=== PATIENT | female | born 1955 | race Caucasian/White ===

== ENCOUNTER 2018-09-30 13:36 | Emergency (ER) | payer OTHER ==
[2018-09-30] MEDS ORDERED: IBUPROFEN 400 MG TAB ONE (14:07)
--- NOTE | 2018-09-30 14:55 | RAD REPORT ---
EXAM DESCRIPTION: RAD - Foot Left 3 View - 09/30/2018 2:23 pm CLINICAL HISTORY: PAIN COMPARISON: No comparisons FINDINGS: Large posterior and plantar calcaneal spurs. No acute fracture or dislocation.
--- NOTE | 2018-09-30 15:02 | ER ---
[facility] Name: Frida Wise Age: 63 yrs Sex: Female : 1955 Arrival Date: 09/30/2018 Time: 13:38 Bed 7 Private MD: Diagnosis: Contusion of left foot Presentation: 09/30 13:41 Presenting complaint: Patient states: I dropped a 10lb dumbell on the top of my left la1 foot about 45 minutes ago. Transition of care: patient was not received from another setting of care. Onset of symptoms was September 30, 2018. Risk Assessment: Do you want to hurt yourself or someone else? Patient reports no desire to harm self or others. Initial Sepsis Screen: Does the patient meet any 2 criteria? No. Patient's initial sepsis screen is negative. Does the patient have a suspected source of infection? No. Patient's initial sepsis screen is negative. Care prior to arrival: None. 13:41 Method Of Arrival: Wheelchair la1 13:41 Acuity: MACARENA 4 la1 Triage Assessment: 13:42 General: Appears in no apparent distress. uncomfortable, Behavior is calm, cooperative, hj appropriate for age. Pain: Complains of pain in left foot. Musculoskeletal: Reports pain in left foot. Injury Description: Crush injury. Historical: - Allergies: 13:42 Demerol; la1 13:42 Codeine; la1 - PMHx: 13:42 None; la1 - Immunization history:: Adult Immunizations up to date. - Social history:: Smoking status: Patient/guardian denies using tobacco. - Ebola Screening: : No symptoms or risks identified at this time. Screenin:42 Abuse screen: Denies threats or abuse. Denies injuries from another. Nutritional hj screening: No deficits noted. Tuberculosis screening: No symptoms or risk factors identified. Fall Risk None identified. Assessment: 13:42 General: Appears in no apparent distress. uncomfortable, Behavior is calm, cooperative, hj appropriate for age. Pain: Complains of pain in left foot. Neuro: Level of Consciousness is awake, alert, obeys commands, Oriented to person, place, time, situation, Appropriate for age. Cardiovascular: Capillary refill < 3 seconds Patient's skin is warm and dry. Respiratory: Airway is patent Respiratory effort is even, unlabored, Respiratory pattern is regular, symmetrical. GI: No signs and/or symptoms were reported involving the gastrointestinal system. : No signs and/or symptoms were reported regarding the genitourinary system. EENT: No signs and/or symptoms were reported regarding the EENT system. Derm: No signs and/or symptoms reported regarding the dermatologic system. Musculoskeletal: Reports pain in left foot. Vital Signs: 13:42 BP 140 / 72; Pulse 63; Resp 16; Temp 98.4; Pulse Ox 98% on R/A; Weight 74.84 kg; Height la1 5 ft. 3 in. (160.02 cm); 13:42 Body Mass Index 29.23 (74.84 kg, 160.02 cm) la1 ED Course: 13:38 Patient arrived in ED. mr 13:42 Triage completed. la1 13:42 Patient has correct armband on for positive identification. Bed in low position. Call hj light in reach. Side rails up X 1. Adult w/ patient. 13:43 Arm band placed on right wrist. la1 13:50 Keron Lewis, CATARINA is Primary Nurse. hj 13:50 Rashaad Oneill PA is PHCP. cp 13:50 Jonah Rascon MD is Attending Physician. cp 14:19 Foot Left 3 View XRAY In Process Unspecified. EDMS 15:20 No provider procedures requiring assistance completed. Patient did not have IV access hj during this emergency room visit. 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 Exp: hj 08/17/2020. Lot #: [id number]. } Route: IM; Site: right deltoid; 15:16 Follow up: Response: No adverse reaction hj Outcome: 15:01 Discharge ordered by . cp 15:21 Discharged to home ambulatory, with crutches, with family. hj 15:21 Condition: stable 15:21 Discharge instructions given to patient, family, Instructed on discharge instructions, follow up and referral plans. medication usage, Demonstrated understanding of instructions, follow-up care, medications, Prescriptions given X 1. 15:21 Patient left the ED. hj Signatures: Dispatcher [employer] EDCO Maddi Cervantes mr Srinivas Rabago, RN RN la1 Keron Lewis, RN RN hj Rashaad Oneill, ARIANNA KELLER cp
--- NOTE | 2018-09-30 15:02 | EDPHYS ---
Physician Documentation [facility] Name: Frida Wise Age: 63 yrs Sex: Female : 1955 Arrival Date: 09/30/2018 Time: 13:38 Bed 7 Private MD: ED Physician Jonah Rascon HPI: 09/30 14:00 This 63 yrs old Female presents to ER via Wheelchair with complaints of Foot cp Injury. 14:00 The patient presents with an injury, pain, that is acute. cp 14:00 The complaints affect the dorsum of left foot. Context: resulted from a direct blow, 10 cp lb weight fell onto top of left foot, the patient can partially bear weight, the patient is able to ambulate. Onset: The symptoms/episode began/occurred today. Modifying factors: the symptoms are aggravated by movement, weight bearing. Associated signs and symptoms: Pertinent negatives calf tenderness, numbness, tingling, warmth, weakness. Historical: - Allergies: 13:42 Demerol; la1 13:42 Codeine; la1 - PMHx: 13:42 None; la1 - Immunization history:: Adult Immunizations up to date. - Social history:: Smoking status: Patient/guardian denies using tobacco. - Ebola Screening: : No symptoms or risks identified at this time. ROS: 14:05 Constitutional: Negative for body aches, chills, fever, poor PO intake. cp 14:05 Eyes: Negative for injury, pain, redness, and discharge. cp 14:05 ENT: Negative for ear pain, sore throat, difficulty swallowing, difficulty handling secretions. 14:05 Cardiovascular: Negative for chest pain. 14:05 Respiratory: Negative for cough. 14:05 Abdomen/GI: Negative for abdominal pain, nausea, vomiting, and diarrhea. 14:05 MS/extremity: Positive for contusion, pain, swelling, tenderness, of the dorsum of left foot, Negative for deformity. 14:05 Neuro: Negative for altered mental status, dizziness, numbness. 14:05 All other systems are negative. Exam: 14:12 Constitutional: The patient appears in no acute distress, alert, awake, non-toxic, well cp developed, well nourished. 14:12 Head/Face: Normocephalic, atraumatic. cp 14:12 Eyes: Periorbital structures: appear normal, Conjunctiva: normal, no exudate, no injection, Lids and lashes: appear normal, bilaterally. 14:12 ENT: External ear(s): are unremarkable, Nose: is normal, Mouth: is normal. 14:12 Chest/axilla: Inspection: normal. 14:12 Cardiovascular: Rate: normal, Rhythm: regular. 14:12 Respiratory: the patient does not display signs of respiratory distress, Respirations: normal, no use of accessory muscles, no retractions, no splinting, no tachypnea, labored breathing, is not present. 14:12 Abdomen/GI: Inspection: abdomen appears normal. 14:12 Back: pain, is absent, ROM is normal. 14:12 Musculoskeletal/extremity: Extremities: grossly normal except: noted in the dorsum of left foot: abrasion, contusion, ecchymosis, pain, Perfusion: the extremity is normally perfused throughout, Sensation intact. Vital Signs: 13:42 BP 140 / 72; Pulse 63; Resp 16; Temp 98.4; Pulse Ox 98% on R/A; Weight 74.84 kg; Height la1 5 ft. 3 in. (160.02 cm); 13:42 Body Mass Index 29.23 (74.84 kg, 160.02 cm) la1 MDM: 13:51 Patient medically screened. 15:00 Data reviewed: vital signs, nurses notes, radiologic studies, plain films. Counseling: cp I had a detailed discussion with the patient and/or guardian regarding: the historical points, exam findings, and any diagnostic results supporting the discharge/admit diagnosis, radiology results, to return to the emergency department if symptoms worsen or persist or if there are any questions or concerns that arise at home. 09/30 13:47 Order name: Foot Left 3 View XRAY; Complete Time: 14:59 la1 09/30 14:59 Interpretation: Reviewed report. 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 Exp: 08/17/2020. Lot #: [id number]. } Route: IM; Site: right deltoid; 15:16 Follow up: Response: No adverse reaction Disposition: 15:33 Co-signature as Attending Physician, Jonah Rascon MD. rn Disposition: 09/30/18 15:01 Discharged to Home. Impression: Contusion of left foot. - Condition is Stable. - Discharge Instructions: Foot Contusion. - Prescriptions for Ibuprofen 800 mg Oral Tablet - take 1 tablet by ORAL route every 8 hours As needed take with food; 30 tablet. - Medication Reconciliation Form, Thank You Letter, Antibiotic Education, Prescription Opioid Use form. - Follow up: Private Physician; When: 5 - 6 days; Reason: Recheck today's complaints. - Problem is new. - Symptoms have improved. Signatures: Dispatcher [employer] EDMS Jonah Rascon MD MD rn Attema, Lee, RN RN laKeron Wills RN RN hj Page, Corey, PA PA cp Corrections: (The following items were deleted from the chart) 15:21 15:01 09/30/2018 15:01 Discharged to Home. Impression: Contusion of left foot. hj Condition is Stable. Forms are Medication Reconciliation Form, Thank You Letter, Antibiotic Education, Prescription Opioid Use. Follow up: Private Physician; When: 5 - 6 days; Reason: Recheck today's complaints. Problem is new. Symptoms have improved. cp 10/01 12:45 09/30 13:05 Constitutional: Negative for body aches, chills, fever, poor PO intake, cp cp 10/01 12:45 09/30 13:05 Eyes: Negative for injury, pain, redness, and discharge, cp cp 10/01 12:45 09/30 13:05 ENT: Negative for drainage from ear(s), ear pain, sore throat, difficulty cp swallowing, difficulty handling secretions, cp 10/01 12:45 09/30 13:05 Cardiovascular: Negative for chest pain, cp cp 10/01 12:45 09/30 13:05 Respiratory: Negative for cough, shortness of breath, wheezing, cp cp 10/01 12:45 09/30 13:05 Abdomen/GI: Negative for abdominal pain, nausea, vomiting, and diarrhea, cp cp 10/01 12:45 09/30 13:05 Back: Negative for pain at rest, pain with movement, radiated pain, cp cp 10/02 11:09/30 13:05 : Negative for urinary symptoms, cp cp 10/01 12:45 09/30 13:05 MS/extremity: Positive for contusion, pain, swelling, tenderness, of the cp dorsum of left foot, cp 10/01 12:09/30 13:05 Neuro: Negative for dizziness, headache, weakness, cp cp 10/01 12:45 09/30 13:05 All other systems are negative, cp cp 10/01 12:47 12:42 MS/extremity: Positive for contusion, ecchymosis, pain, swelling, tenderness, of cp the dorsum of left foot, cp 12:47 12:42 Constitutional: Negative for body aches, chills, fever, poor PO intake, cp cp 12:47 12:42 Eyes: Negative for injury, pain, redness, and discharge, cp cp 12:47 12:42 ENT: Negative for drainage from ear(s), ear pain, sore throat, difficulty cp swallowing, difficulty handling secretions, cp 12:47 12:42 Cardiovascular: Negative for chest pain, cp cp 12:47 12:42 Respiratory: Negative for cough, shortness of breath, wheezing, cp cp 12:47 12:42 Abdomen/GI: Negative for abdominal pain, vomiting, diarrhea, constipation, cp cp 12:47 12:42 Back: Negative for pain at rest, pain with movement, cp cp 12:47 12:42 : Negative for urinary symptoms, cp cp 12:47 12:42 Neuro: Negative for altered mental status, dizziness, numbness, cp cp 12:47 12:42 All other systems are negative, cp cp
[2018-09-30] MEDS ORDERED: TETANUS & DIPHTHERIA TOX,ADULT 0.5 ML VIAL ONE (15:13)
== END 2018-09-30 15:21 | disposition home or self-care (01) ==
LOC: ER 13:36
DX: S90.32XA Contusion of left foot, initial encounter (principal); W22.8XXA Striking against or struck by other objects, initial encounter; Y93.9 Activity, unspecified; Y92.9 Unspecified place or not applicable; Z88.5 Allergy status to narcotic agent
CPT/HCPCS: 90714; 99283

== ENCOUNTER 2023-09-22 10:53 | Observation (INO) | payer OTHER ==
--- OUTSIDE RECORDS SUMMARY | 2023-09-22 11:10 | XMS REPORT | Continuity of Care Document ---
Author Name Unknown Address [address] [facility] [place] [address] [facility] Address [address] [place] [address] Care Team Providers Care Account Executive Key Accounts Name Role Phone JD SHEPARD Primary Care Physician Jase Calvo MD Attending Clinician JASE WARE Attending Clinician JASE Xavier Attending Clinician Nilo merino Doctor Unassigned, [place] Attending Clinician U navailable 1, [facility] Sleep Lab Bed Attending Clinician Unavail able Payers Payer Name Policy Type Policy Number Effective Date Expirati on Date Source Problems Condition Name Condition Details Condition Category Status Onset Date Resolution Date Last Treatment Date Treating Clinician Comments Source No known active problems No known active problems Disease [facility] Allergies, Adverse Reactions, Alerts Allergy Name Allergy Type Status Severity Reaction(s) Onset Date Inactive Date Treating Clinician Comments Source Meperidi ne Propensi ty to adverse reaction s Active Other - See comments 02-10 00:00: 00 syncope [facility] CODEINE DRUG INGREDI Active Other-Cmnt 8 00:00: 00 [facility] MEPERIDI NE DRUG INGREDI Active Other-Cmnt 02-10 00:00: 00 [facility] Codeine Propensi ty to adverse reaction s Active Other - See comments 02-10 00:00: 00 syncope [facility] Social History Social Habit Start Date Stop Date Quantity Comments Source Exposure to SARS-CoV-2 (event) 2022-07-11 00:00:00 2022-07-21 10:09:00 Not sure [facility] Tobacco use and exposure 2022-02-10 00:00:00 2022-02-10 00:00:00 Smokeless tobacco non-user [facility] Sex Assigned At 1955 00:00:00 1955 00:00:00 [facility] Smoking Status Start Date Stop Date Source Tobacco smoking consumption unknown [facility] Never smoked tobacco [facility] Medications Ordered Medication Name Filled Medication Name Start Date Stop Date Current Medication? Ordering Clinician Indication Dosage Frequency Signature (SIG) Comments Components Source escitalopra m oxalate 20 mg tablet 07-21 10:23: 46 Yes Take by mouth daily. [facility] Lamotrigine 100 mg TbDL 07-21 10:23: 46 Yes Take by mouth. [facility] trazodone HCl (TRAZODONE ORAL) 07-21 10:23: 46 Yes Take by mouth. [facility] escitalopra m oxalate 20 mg tablet 07-21 10:23: 46 Yes Take by mouth daily. [facility] Lamotrigine 100 mg TbDL 07-21 10:23: 46 Yes Take by mouth. [facility] trazodone HCl (TRAZODONE ORAL) 07-21 10:23: 46 Yes Take by mouth. [facility] escitalopra m oxalate 20 mg tablet 07-21 10:23: 46 Yes Take by mouth daily. [facility] Lamotrigine 100 mg TbDL 07-21 10:23: 46 Yes Take by mouth. [facility] trazodone HCl (TRAZODONE ORAL) 07-21 10:23: 46 Yes Take by mouth. [facility] escitalopra m oxalate 20 mg tablet 07-21 10:23: 46 Yes Take by mouth daily. [facility] Lamotrigine 100 mg TbDL 07-21 10:23: 46 Yes Take by mouth. [facility] trazodone HCl (TRAZODONE ORAL) 07-21 10:23: 46 Yes Take by mouth. [facility] escitalopra m oxalate 20 mg tablet 07-21 10:23: 46 Yes Take by mouth daily. [facility] Lamotrigine 100 mg TbDL 07-21 10:23: 46 Yes Take by mouth. [facility] trazodone HCl (TRAZODONE ORAL) 07-21 10:23: 46 Yes Take by mouth. [facility] No known medications 02-10 12:15: 35 No No known medication s [facility] No known medications 02-10 12:15: 35 No No known medication s [facility] trazodone HCl (TRAZODONE ORAL) 02-10 12:07: 55 Yes Take by mouth. [facility] trazodone HCl (TRAZODONE ORAL) 810 12:07: 55 Yes Take by mouth. [facility] trazodone HCl (TRAZODONE ORAL) 8 12:07: 55 Yes Take by mouth. [facility] trazodone HCl (TRAZODONE ORAL) 10 12:07: 55 Yes Take by mouth. [facility] trazodone HCl (TRAZODONE ORAL) 810 12:07: 55 Yes Take by mouth. [facility] trazodone HCl (TRAZODONE ORAL) 810 12:07: 55 Yes Take by mouth. [facility] trazodone HCl (TRAZODONE ORAL) 810 12:07: 55 Yes Take by mouth. [facility] trazodone HCl (TRAZODONE ORAL) 810 12:07: 55 Yes Take by mouth. [facility] trazodone HCl (TRAZODONE ORAL) 2021-0 8-10 12:07: 55 Yes Take by mouth. [facility] trazodone HCl (TRAZODONE ORAL) 2021-0 8-10 12:07: 55 Yes Take by mouth. [facility] Lamotrigine 100 mg TbDL 2-0 8-10 12:07: 54 Yes Take by mouth. [facility] escitalopra m oxalate 20 mg tablet 2021-0 8-10 12:07: 54 Yes Take by mouth daily. [facility] Lamotrigine 100 mg TbDL 2021-0 8-10 12:07: 54 Yes Take by mouth. [facility] escitalopra m oxalate 20 mg tablet 2021-0 8-10 12:07: 54 Yes Take by mouth daily. [facility] Lamotrigine 100 mg TbDL 2021-0 8-10 12:07: 54 Yes Take by mouth. [facility] escitalopra m oxalate 20 mg tablet 2021-0 8-10 12:07: 54 Yes Take by mouth daily. [facility] Lamotrigine 100 mg TbDL 2021-0 8-10 12:07: 54 Yes Take by mouth. [facility] escitalopra m oxalate 20 mg tablet 2021-0 8-10 12:07: 54 Yes Take by mouth daily. [facility] Lamotrigine 100 mg TbDL 2021-0 8-10 12:07: 54 Yes Take by mouth. [facility] escitalopra m oxalate 20 mg tablet 2021-0 8-10 12:07: 54 Yes Take by mouth daily. [facility] Lamotrigine 100 mg TbDL 2-0 8-10 12:07: 54 Yes Take by mouth. [facility] escitalopra m oxalate 20 mg tablet 2-0 8-10 12:07: 54 Yes Take by mouth daily. [facility] Lamotrigine 100 mg TbDL 2-0 8-10 12:07: 54 Yes Take by mouth. [facility] escitalopra m oxalate 20 mg tablet 810 12:07: 54 Yes Take by mouth daily. [facility] Lamotrigine 100 mg TbDL 8-10 12:07: 54 Yes Take by mouth. [facility] escitalopra m oxalate 20 mg tablet 8-10 12:07: 54 Yes Take by mouth daily. [facility] Lamotrigine 100 mg TbDL 810 12:07: 54 Yes Take by mouth. [facility] escitalopra m oxalate 20 mg tablet 810 12:07: 54 Yes Take by mouth daily. [facility] Lamotrigine 100 mg TbDL 8 12:07: 54 Yes Take by mouth. [facility] escitalopra m oxalate 20 mg tablet 02-10 12:07: 54 Yes Take by mouth daily. [facility] Vital Signs Vital Name Observation Time Observation Value Comments S beth Systolic blood pressure 2022-07-21 16:24:00 123 mm[Hg] [facility] Diastolic blood pressure 2022-07-21 16:24:00 76 mm[Hg] [facility] Heart rate 2022-07-21 16:24:00 50 /min [facility] Respiratory rate 2022-07-21 16:24:00 17 /min [facility] Body height 2022-07-21 16:24:00 160 cm [facility] Body weight 2022-07-21 16:24:00 74.532 kg [facility] BMI 2022-07-21 16:24:00 29.11 kg/m2 [facility] Oxygen saturation in Arterial blood by Pulse oximetry 2022-07-21 16:24:00 97 /min [facility] Systolic blood pressure 2022-04-07 19:40:00 135 mm[Hg] [facility] Diastolic blood pressure 2022-04-07 19:40:00 75 mm[Hg] [facility] Heart rate 2022-04-07 19:40:00 52 /min [facility] Respiratory rate 2022-04-07 19:40:00 19 /min [facility] Body height 2022-04-07 19:40:00 160 cm [facility] Body weight 2022-04-07 19:40:00 76.975 kg [facility] BMI 2022-04-07 19:40:00 30.06 kg/m2 [facility] Oxygen saturation in Arterial blood by Pulse oximetry 2022-04-07 19:40:00 94 /min [facility] Systolic blood pressure 2022-02-10 17:03:00 131 mm[Hg] [facility] Diastolic blood pressure 2022-02-10 17:03:00 67 mm[Hg] [facility] Heart rate 2022-02-10 17:03:00 54 /min [facility] Body height 2022-02-10 17:03:00 160 cm [facility] Body weight 2022-02-10 17:03:00 77.973 kg [facility] BMI 2022-02-10 17:03:00 30.45 kg/m2 [facility] Oxygen saturation in Arterial blood by Pulse oximetry 2022-02-10 17:03:00 94 /min [facility] Procedures Procedure Date / Time Performed Performing Clinician Source DME/SUPPLY JUSTIFICATION 2022-07-21 06:01:00 Doc tor Unassigned, [place] [facility] SLEEP STUDY DATA REPORT 2022-05-08 05:01:00 Doct or Unassigned, [place] [facility] ASSIGNMENT OF BENEFITS 2022-04-07 19:16:56 Docto r Unassigned, [place] [facility] AUTHORIZATION FOR RELEASE OF PHI 2022-03-11 05:01:00 Doctor Unassigned, [place] [facility] SLEEP STUDY DATA REPORT 2022-02-20 05:01:00 Doct or Unassigned, [place] [facility] REFERRAL- REQUEST/RESPONSE 2022-01-26 05:01:00 Doctor Unassigned, [place] [facility] VACCINATIONS - CONSENTS, ELIGIBILITY, HISTORY Doctor Unassigned, [place] [facility] Encounters Start Date/Time End Date/Time Encounter Type Admission Type Attending Clinicians Care Facility Care Department Encounter ID Source 2022-07-21 10:30:00 2022-07-21 11:00:00 Office Visit Jase Ware [facility] [id number] 350.1.13.10 4.2.7.2.686 [id number] [facility] 2022-07-21 10:30:00 2022-07-21 10:30:00 Outpatient R JASE WARE STRAHIL [facility] [id number] [facility] 2022-07-21 00:00:00 2022-07-21 00:00:00 Telephone Jase Ware [facility] 1.840.114 350.1.13.10 4.2.7.2.686 [id number] [facility] 2022-07-21 00:00:00 2022-07-21 00:00:00 Orders Only Doctor Unassigned, [place] [facility] [id number] 350.1.13.10 4.2.7.2.686 [id number] [facility] 2022-07-10 20:00:00 2022-07-10 20:00:00 Outpatient R JASE WARE STRAHIL [facility] [id number] [facility] 2022-05-08 20:00:00 2022-05-08 22:30:00 Fisher Weir Visit 1, [facility] Sleep Lab Bed Jase Ware [facility] 1.2840.114 350.1.13.10 4.2.7.2.686 [id number] [facility] 2022-05-08 20:00:00 2022-05-08 20:00:00 Outpatient R ZOËLEN JASE CAMPLATONYAYESY [facility] [id number] [facility] 2022-05-08 00:00:00 2022-05-08 00:00:00 Orders Only Doctor Unassigned, [place] [facility] 1.2840.114 350.1.13.10 4.2.7.2.686 [id number] [facility] 2022-04-07 14:20:00 2022-04-07 14:55:49 Outpatient R BILL WARESAMIR CAMPLEN [facility] [id number] [facility] 2022-04-07 14:20:00 2022-04-07 14:40:00 Office Visit Jase Ware [facility] 1.2840.114 350.1.13.10 4.2.7.2.686 [id number] [facility] 2022-04-07 00:00:00 2022-04-07 00:00:00 Orders Only Doctor Unassigned, [place] [facility] [id number] 350.1.13.10 4.2.7.2.686 [id number] [facility] 2022-03-11 00:00:00 2022-03-11 00:00:00 Orders Only Doctor Unassigned, [place] [facility] 1.2840.114 350.1.13.10 4.2.7.2.686 [id number] [facility] 2022-02-20 20:00:00 2022-02-20 22:30:00 Fisher Weir Visit 1, [facility] Sleep Lab Bed Jase Ware [facility] 1.2840.114 350.1.13.10 4.2.7.2.686 [id number] [facility] 2022-02-20 20:00:00 2022-02-20 20:00:00 Outpatient R JASE WARE STRANHNikolas [facility] [id number] [facility] 2022-02-20 00:00:00 2022-02-20 00:00:00 Orders Only Doctor Unassigned, [place] [facility] 1.2840.114 350.1.13.10 4.2.7.2.686 [id number] [facility] 2022-02-10 11:40:00 2022-02-10 15:12:13 Outpatient R JASE WARE STRANHNikolas [facility] [id number] [facility] 2022-02-10 11:40:00 2022-02-10 15:12:13 Outpatient R JASE WARE [facility] [id number] [facility] 2022-02-10 11:40:00 2022-02-10 12:00:00 Office Visit Jase Ware [facility] 1.84.114 350.1.13.10 4.2.7.2.686 [id number] [facility] 2022-01-26 00:00:00 2022-01-26 00:00:00 Orders Only Doctor Unassigned, [place] [facility] 1.284.114 350.1.13.10 4.2.7.2.686 [id number] [facility] Orders Only Doctor Unassigned, [place] [facility] 1.2840.114 350.1.13.10 4.2.7.2.686 [id number] [facility]
[2023-09-22 11:27] LABS: Absolute Eosinophils 0.1 K/uL (0-0.5); Absolute Lymphocytes (CBC) 1.4 K/uL (0.7-4.9); Absolute Monocytes 0.3 K/uL (0.1-1.3); Absolute Neutrophil 1.8 K/uL (1.8-8.0); Basophils % 0.7 % (0-1.3); Eosinophils % 2.2 % (0-4.4); Hematocrit 38.8 % (36.0-45.0); Hemoglobin 13.2 g/dL (12.0-15.0); Lymphocytes % 38.9 % (15.3-44.8); MCH 30.5 pg (27.0-35.0); MCV 89.6 fL (80-100); MPV 7.5 fL (7.6-11.3); Monocytes % 9.4 % (3.3-12.3); Neutrophils % 48.8 % (41.7-73.7); Nucleated Red Blood Cells % 0.1 % (0-0); Platelets 249 thou/uL (152-406); RBC Red Blood Cell Count 4.33 M/uL (3.86-4.86); Red Cell Distribution Width 14.7 % (12.1-15.2)
[2023-09-22 11:39] LABS: PT Prothrombin Time 11.7 SECONDS (9.5-12.5); Protime INR 1.07
[2023-09-22] MEDS ORDERED: ASPIRIN 81 MG CHEWABLE TABLET ONE (11:39)
[2023-09-22] MEDS ORDERED: ONDANSETRON 4 MG/2 ML VIAL ONE (11:39)
[2023-09-22] MEDS ORDERED: MORPHINE 2 MG/ML SYR ONE (11:40)
[2023-09-22] MEDS ORDERED: NA CHLORIDE 0.9% 2,000 ML ONE (11:40)
[2023-09-22] MEDS ORDERED: FAMOTIDINE 20 MG/2 ML VIAL IV ONE (11:40)
[2023-09-22 11:41] LABS: Albumin 3.3 g/dL (3.4-5.0); Anion Gap 8.2 mEq/L (5.0-15.0); Bilirubin Direct 0.1 mg/dL (0-0.2); Bilirubin Indirect, Calculated 0.3 mg/dL (0.2-0.8); Bilirubin Total 0.4 mg/dL (0.2-1.0); Globulin 3.2 g/dL (2.3-3.5); Protein, Total 6.5 g/dL (6.4-8.2); Troponin High Sensitivity 3.7 pg/mL (<58.9)
[2023-09-22 11:42] LABS: Magnesium 2.1 mg/dL (1.6-2.4); Potassium 4.2 mEq/L (3.5-5.1)
--- NOTE | 2023-09-22 11:55 | RAD REPORT ---
EXAM DESCRIPTION: RAD - Chest Single View - 09/22/2023 11:51 am CLINICAL HISTORY: CHEST PAIN COMPARISON: No comparisons FINDINGS: Lines: None. Lungs: No evidence of edema or pneumonia. Pleural: No significant pleural effusions or pneumothorax. Cardiac: The heart size is within normal limits. Mediastinum: Within normal limits. Bones: No acute fractures. Other: None IMPRESSION: No acute cardiopulmonary disease.
--- NOTE | 2023-09-22 14:23 | ER ---
Nurse's Notes [facility] Name: Frida Wise Age: 68 yrs Sex: Female : 1955 Arrival Date: 09/22/2023 Time: 10:53 Bed 5 Private MD: Diagnosis: Chest pain, unspecified;Weakness;Other malaise and fatigue;Bradycardia, unspecified Presentation: 09/21 10:57 Chief complaint: Patient states: chest tightness since yesterday, denies any other aa5 symptoms. Pt reports being sent here by [facility]. 10:57 Onset of symptoms was September 2023. aa5 10:57 Acuity: MACARENA 3 aa5 10:57 Method Of Arrival: Ambulatory aa5 10:57 Coronavirus screen: At this time, the client does not indicate any symptoms associated aa5 with coronavirus-19. Ebola Screen: Patient denies travel to an Ebola-affected area in the 21 days before illness onset. Initial Sepsis Screen: Does the patient meet any 2 criteria? No. Patient's initial sepsis screen is negative. Does the patient have a suspected source of infection? No. Patient's initial sepsis screen is negative. Risk Assessment: Do you want to hurt yourself or someone else? Patient reports no desire to harm self or others. Historical: - Allergies: 10:57 Codeine; aa5 10:57 Demerol; aa5 - Home Meds: 10:57 amlodipine oral [Active]; losartan oral [Active]; Trazodone Oral [Active]; Lexapro Oral aa5 [Active]; lamotrigine oral [Active]; - PMHx: 10:57 Hypertensive disorder; aa5 - Immunization history:: Adult Immunizations unknown. - Social history:: Smoking status: Patient denies any tobacco usage or history of. Screenin:18 [facility] ED Fall Risk Assessment (Adult) History of falling in the last 3 months, ld1 including since admission No falls in past 3 months (0 pts). Abuse screen: Denies threats or abuse. Denies injuries from another. Nutritional screening: No deficits noted. Tuberculosis screening: No symptoms or risk factors identified. Assessment: 11:18 General: Appears in no apparent distress. comfortable, Behavior is calm, cooperative, ld1 appropriate for age. Pain: Denies pain. Pain does not radiate. Pain began 1 hour ago. Neuro: Level of Consciousness is awake, alert, obeys commands, Oriented to person, place, time, situation. Cardiovascular: Capillary refill < 3 seconds Patient's skin is warm and dry. Respiratory: Airway is patent Respiratory effort is even, unlabored. GI: Abdomen is flat, non-distended. : No signs and/or symptoms were reported regarding the genitourinary system. EENT: No signs and/or symptoms were reported regarding the EENT system. Derm: No signs and/or symptoms reported regarding the dermatologic system. Musculoskeletal: No signs and/or symptoms reported regarding the musculoskeletal system. 12:25 Reassessment: Patient and/or family updated on plan of care and expected duration. Pain rs5 level reassessed. Patient is alert, oriented x 3, equal unlabored respirations, skin warm/dry/pink. 13:29 Reassessment: No changes from previously documented assessment. rs5 14:06 Reassessment: Patient appears in no apparent distress at this time. No changes from rs5 previously documented assessment. Patient and/or family updated on plan of care and expected duration. Pain level reassessed. 15:01 Reassessment: No changes from previously documented assessment. rs5 Vital Signs: 10:57 BP 143 / 74; Pulse 48; Resp 16 S; Temp 97.5(TE); Pulse Ox 98% on R/A; Weight 69.4 kg aa5 (R); Height 5 ft. 3 in. (R); 13:06 BP 145 / 73; Pulse 44; Resp 18; Pulse Ox 95% on R/A; ld1 14:06 BP 144 / 73; Pulse 47; Resp 18; Pulse Ox 97% on R/A; rs5 15:01 BP 140 / 75; Pulse 50; Resp 17; Pulse Ox 99% on R/A; rs5 10:57 Body Mass Index 27.10 (69.40 kg, 160.02 cm) aa5 Selena Coma Score: 14:15 Eye Response: spontaneous(4). Motor Response: obeys commands(6). Verbal Response: nitesh oriented(5). Total: 15. ED Course: 10:57 Patient arrived in ED. mg5 10:57 Rashaad Atkins MD is Attending Physician. nitesh 10:57 Arm band placed on Patient placed in an exam room, on a stretcher. aa5 11:17 Triage completed. aa5 11:18 Patient has correct armband on for positive identification. Placed in gown. Bed in low ld1 position. Call light in reach. Side rails up X2. surveillance monitor on. Pulse ox on. NIBP on. Door closed. Noise minimized. Warm blanket given. 11:18 Inserted saline lock: 20 gauge in right upper arm, using aseptic technique. Blood ld1 collected. 11:18 No provider procedures requiring assistance completed. Patient maintains SpO2 ld1 saturation greater than 95% on room air. 11:19 Marina Joya, [place] is Primary Nurse. ld1 11:52 XRAY Chest (1 view) In Process Unspecified. EDMS 14:22 Jani Hodgson is Hospitalizing Provider. [facility] 16:12 Provided Education on: need for admit. ld1 16:12 Patient admitted, IV remains in place. ld1 Administered Medications: 11:45 Drug: Aspirin PO Chewable Tablet 162 mg PO once Route: PO; ld1 12:00 Follow up: Response: No adverse reaction rs5 11:45 Drug: morphine IVP or IV 2 mg IVP once over 4 mins Route: IVP; Infused Over: 4 mins; ld1 Site: right upper arm; 12:01 Follow up: Response: No adverse reaction rs5 11:45 Drug: Famotidine IVP 20 mg IVP once; dilute with 10 mL 0.9% NaCl; give over 2 minutes ld1 Route: IVP; Site: right upper arm; 12:01 Follow up: Response: No adverse reaction rs5 11:45 Drug: NS 0.9% IV 1000 ml IV at 125 ml/hr continuous Route: IV; Rate: 125 ml/hr; Site: ld1 right upper arm; 12:10 Follow up: Response: No adverse reaction rs5 11:46 Drug: NS 0.9% IV 1000 ml IV at 125 ml/hr continuous Route: IV; Rate: 125 ml/hr; Site: ld1 right upper arm; 12:10 Follow up: Response: No adverse reaction rs5 11:46 Drug: Ondansetron IVP 4 mg IVP once; over 2 minutes Route: IVP; Site: right upper arm; ld1 12:01 Follow up: Response: No adverse reaction rs5 14:40 Drug: Enoxaparin Sub-Q 70 mg Sub-Q once Route: Sub-Q; Site: left lower abdomen; rs5 15:00 Follow up: Response: No adverse reaction rs5 Medication: 11:18 VIS not applicable for this client. ld1 Outcome: 14:22 Decision to Hospitalize by Provider. nitesh 16:12 Admitted to ER Hold. [facility]. ld1 16:12 Condition: stable 16:12 Instructed on the need for admit, 17:55 Patient left the ED. ld1 Signatures: Dispatcher [employer] EDRashaad Pagan MD MD cha Calderon, Audri, RN RN aa5 Marina Joya RN RN ld1 King White RN RN rs5 Anusha Royal mg5
--- NOTE | 2023-09-22 14:23 | EDPHYS ---
Physician Documentation [facility] Name: Frida Wise Age: 68 yrs Sex: Female : 1955 Arrival Date: 09/22/2023 Time: 10:53 Bed 5 Private MD: ED Physician Rashaad Atkins HPI: 09/21 14:13 This 68 yrs old Female presents to ER via Ambulatory with complaints of Chest nitesh Tightness, Abnormal Lab Results - EKG. 14:13 The patient or guardian reports chest pain that is located primarily in the substernal nitesh area, anterior chest wall. Onset: just prior to arrival, today. The pain radiates to chest. Historical: - Allergies: 10:57 Codeine; aa5 10:57 Demerol; aa5 - Home Meds: 10:57 amlodipine oral [Active]; losartan oral [Active]; Trazodone Oral [Active]; Lexapro Oral aa5 [Active]; lamotrigine oral [Active]; - PMHx: 10:57 Hypertensive disorder; aa5 - Immunization history:: Adult Immunizations unknown. - Social history:: Smoking status: Patient denies any tobacco usage or history of. ROS: 14:14 Constitutional: Negative for fever, chills, and weight loss, Eyes: Negative for injury, nitesh pain, redness, and discharge, ENT: Negative for injury, pain, and discharge, Neck: Negative for injury, pain, and swelling, Respiratory: Negative for shortness of breath, cough, wheezing, and pleuritic chest pain, Abdomen/GI: Negative for abdominal pain, nausea, vomiting, diarrhea, and constipation, Back: Negative for injury and pain, : Negative for injury, bleeding, discharge, and swelling, MS/Extremity: Negative for injury and deformity, Skin: Negative for injury, rash, and discoloration, Psych: Negative for depression, anxiety, suicide ideation, homicidal ideation, and hallucinations, Allergy/Immunology: Negative for hives, rash, and allergies, Endocrine: Negative for neck swelling, polydipsia, polyuria, polyphagia, and marked weight changes, Hematologic/Lymphatic: Negative for swollen nodes, abnormal bleeding, and unusual bruising, 14:14 Cardiovascular: Positive for chest pain, of the chest, 14:14 MS/extremity: Positive for 14:14 Neuro: Positive for weakness, Exam: 14:15 Constitutional: This is a well developed, well nourished patient who is awake, alert, nitesh and in no acute distress. Head/Face: Normocephalic, atraumatic. Eyes: Pupils equal round and reactive to light, extra-ocular motions intact. Lids and lashes normal. Conjunctiva and sclera are non-icteric and not injected. Cornea within normal limits. Periorbital areas with no swelling, redness, or edema. ENT: Nares patent. No nasal discharge, no septal abnormalities noted. Tympanic membranes are normal and external auditory canals are clear. Oropharynx with no redness, swelling, or masses, exudates, or evidence of obstruction, uvula midline. Mucous membranes moist. Neck: Trachea midline, no thyromegaly or masses palpated, and no cervical lymphadenopathy. Supple, full range of motion without nuchal rigidity, or vertebral point tenderness. No Meningismus. Chest/axilla: Normal chest wall appearance and motion. Nontender with no deformity. No lesions are appreciated. Cardiovascular: Regular rate and rhythm with a normal S1 and S2. No gallops, murmurs, or rubs. Normal PMI, no JVD. No pulse deficits. Respiratory: Lungs have equal breath sounds bilaterally, clear to auscultation and percussion. No rales, rhonchi or wheezes noted. No increased work of breathing, no retractions or nasal flaring. Abdomen/GI: Soft, non-tender, with normal bowel sounds. No distension or tympany. No guarding or rebound. No evidence of tenderness throughout. Back: No spinal tenderness. No costovertebral tenderness. Full range of motion. Female : Normal external genitalia. Skin: Warm, dry with normal turgor. Normal color with no rashes, no lesions, and no evidence of cellulitis. MS/ Extremity: Pulses equal, no cyanosis. Neurovascular intact. Full, normal range of motion. Neuro: Awake and alert, GCS 15, oriented to person, place, time, and situation. Cranial nerves II-XII grossly intact. Motor strength 5/5 in all extremities. Sensory grossly intact. Cerebellar exam normal. Normal gait. Psych: Awake, alert, with orientation to person, place and time. Behavior, mood, and affect are within normal limits. 14:15 ECG was reviewed by the Attending Physician. Vital Signs: 10:57 BP 143 / 74; Pulse 48; Resp 16 S; Temp 97.5(TE); Pulse Ox 98% on R/A; Weight 69.4 kg aa5 (R); Height 5 ft. 3 in. (R); 13:06 BP 145 / 73; Pulse 44; Resp 18; Pulse Ox 95% on R/A; ld1 14:06 BP 144 / 73; Pulse 47; Resp 18; Pulse Ox 97% on R/A; rs5 15:01 BP 140 / 75; Pulse 50; Resp 17; Pulse Ox 99% on R/A; rs5 10:57 Body Mass Index 27.10 (69.40 kg, 160.02 cm) aa5 Cary Coma Score: 14:15 Eye Response: spontaneous(4). Motor Response: obeys commands(6). Verbal Response: nitesh oriented(5). Total: 15. MDM: 10:57 Patient medically screened. nitesh 14:16 Differential diagnosis: abnormal EKG, acute myocardial infarction, acute pericarditis, nitesh anxiety, coronary artery disease chest wall pain, congestive heart failure costochondritis, esophagitis, gastroesophageal reflux disease (GERD), hiatal hernia, pancreatitis, peptic ulcer disease, pulmonary embolus, stable angina, thoracic aortic disection, unstable angina. HEART Score: History: Moderately Suspicious (1), ECG: Non specific repolarization disturbance / LBTB / PM (1), Age: > or = 65 years (2), Risk Factors: > or = 3 Risk factors for atherosclerotic disease (2), [Hypercholesterolemia] [Hypertension] [+ Family HX] Troponin: < or = 1 x Normal Limit (0). The patient was given aspirin in the Emergency Department. MAGDI Risk Score: 1 - patient's age is greater or equal to 65 years, 1 - Three or more CAD risk factors, 1 - Recent [<24hrs] Severe Angina. Data reviewed: vital signs, nurses notes, EMS record, lab test result(s), EKG, radiologic studies, plain films. Consideration of Admission/Observation Patient was admitted/placed on observation. Escalation of care including admission/observation considered. Management of patient was discussed with the following: Hospitalist: obs , tele. Independent interpretation of the following test(s) in the Emergency Department EKG: See my EKG interpretation above. Test considered but Not performed: Ultrasound no 2 d echo. Historians other than the Patient: patient well informed. Care significantly affected by the following chronic conditions: Hypertension. Counseling: I had a detailed discussion with the patient and/or guardian regarding the historical points, exam findings, and any diagnostic results supporting the discharge/admit diagnosis, lab results, radiology results, the need for further work-up and treatment in the hospital. 09/21 10:59 Order name: Basic Metabolic Panel; Complete Time: 14:03 nitesh 09/21 10:59 Order name: CBC with Diff; Complete Time: 14:03 nitesh 09/21 10:59 Order name: LFT's; Complete Time: 14:03 nitesh 09/21 10:59 Order name: Magnesium; Complete Time: 14:03 nitesh 09/21 10:59 Order name: NT PRO-BNP; Complete Time: 14:03 nitesh 09/21 10:59 Order name: PT-INR; Complete Time: 14:03 nitesh 09/21 10:59 Order name: Troponin HS; Complete Time: 14:03 [facility] 09/21 10:59 Order name: Lipase; Complete Time: 14:03 [facility] 09/21 15:32 Order name: T4 Free EDMS 09/21 15:32 Order name: Thyroid Stimulating Hormone EDMS 09/21 15:32 Order name: Basic Metabolic Panel EDMS 09/21 15:32 Order name: Basic Metabolic Panel EDMS 09/21 15:32 Order name: Basic Metabolic Panel EDMS 09/21 15:32 Order name: CBC with Automated Diff EDMS 09/21 15:32 Order name: CBC with Automated Diff EDMS 09/21 15:32 Order name: CBC with Automated Diff EDMS 09/21 15:32 Order name: Lipid Profile EDMS 09/21 15:32 Order name: Lipid Profile EDMS 09/21 15:32 Order name: Magnesium EDMS 09/21 15:32 Order name: Magnesium EDMS 09/21 15:32 Order name: Magnesium EDMS 09/21 15:32 Order name: Phosphorus EDMS 09/21 15:32 Order name: Phosphorus EDMS 09/21 15:32 Order name: Phosphorus EDMS 09/21 15:32 Order name: Troponin High Sensitivity EDMS 09/21 15:32 Order name: Troponin High Sensitivity EDMS 09/21 15:32 Order name: Troponin High Sensitivity EDMS 09/21 15:32 Order name: Urinalysis w/ reflexes [facility] 09/21 10:59 Order name: XRAY Chest (1 view); Complete Time: 14:03 [facility] 09/21 15:33 Order name: Echo with Doppler [facility] 09/21 10:59 Order name: EKG; Complete Time: 10:59 [facility] 09/21 15:32 Order name: CONS Physician Consult [facility] 09/21 10:59 Order name: Cardiac monitoring; Complete Time: 11:08 [facility] 09/21 10:59 Order name: EKG - Nurse/Tech; Complete Time: 11:17 [facility] 09/21 10:59 Order name: IV Saline Lock; Complete Time: 11:17 [facility] 09/21 10:59 Order name: Labs collected and sent; Complete Time: 11: [facility] 09/21 10:59 Order name: O2 Per Protocol; Complete Time: 11:08 [facility] 09/21 10:59 Order name: O2 Sat Monitoring; Complete Time: 11:08 [facility] EC:15 Rate is 46 beats/min. Rhythm is regular. QRS [place] is Normal. NV interval is normal. QRS nitesh interval is normal. QT interval is normal. No Q waves. T waves are Normal. No ST changes noted. Clinical impression: 1st degree heart block, Sinus bradycardia, and No evidence of ischemia. Interpreted by me. Reviewed by me. Administered Medications: 11:45 Drug: Aspirin PO Chewable Tablet 162 mg PO once Route: PO; ld1 12:00 Follow up: Response: No adverse reaction rs5 11:45 Drug: morphine IVP or IV 2 mg IVP once over 4 mins Route: IVP; Infused Over: 4 mins; ld1 Site: right upper arm; 12:01 Follow up: Response: No adverse reaction rs5 11:45 Drug: Famotidine IVP 20 mg IVP once; dilute with 10 mL 0.9% NaCl; give over 2 minutes ld1 Route: IVP; Site: right upper arm; 12:01 Follow up: Response: No adverse reaction rs5 11:45 Drug: NS 0.9% IV 1000 ml IV at 125 ml/hr continuous Route: IV; Rate: 125 ml/hr; Site: ld1 right upper arm; 12:10 Follow up: Response: No adverse reaction rs5 11:46 Drug: NS 0.9% IV 1000 ml IV at 125 ml/hr continuous Route: IV; Rate: 125 ml/hr; Site: ld1 right upper arm; 12:10 Follow up: Response: No adverse reaction rs5 11:46 Drug: Ondansetron IVP 4 mg IVP once; over 2 minutes Route: IVP; Site: right upper arm; ld1 12:01 Follow up: Response: No adverse reaction rs5 14:40 Drug: Enoxaparin Sub-Q 70 mg Sub-Q once Route: Sub-Q; Site: left lower abdomen; rs5 15:00 Follow up: Response: No adverse reaction rs5 Disposition Summary: 09/22/23 14:22 Hospitalization Ordered Notes: Hospitalization Status: Observation nitesh Provider: Jani Hodgson cha Location: Telemetry/MedSurg (observation) nitesh Condition: Fair nitesh Problem: new nitesh Symptoms: have improved nitesh Bed/Room Type: Standard nitesh Room Assignment: 401(09/22/23 16:23) aa5 Diagnosis - Chest pain, unspecified nitesh - Weakness nitesh - Other malaise and fatigue nitesh - Bradycardia, unspecified nitesh Forms: - Medication Reconciliation Form nitesh - SBAR form nitesh - Leadership Thank You Letter nitesh Signatures: Dispatcher [employer] Rashaad Blount MD MD cha Calderon, Audri, RN RN aa5 Marina Joya RN RN ld1 King White RN RN rs5 Corrections: (The following items were deleted from the chart) 16:23 14:22 nitesh aa5
--- NOTE | 2023-09-22 15:10 | P.HP ---
Certification for Inpatient Patient admitted to: Observation With expected LOS: <2 Midnights Patient will require the following post-hospital care: None Practitioner: I am a practitioner with admitting privileges, knowledge of patient current condition, hospital course, and medical plan of care. Services: Services provided to patient in accordance with Admission requirements found in Title 42 Section 412.3 of the Code of Federal Regulations Patient History Date of Service: 09/22/23 Reason for admission: chest pain r/o History of Present Illness: Frida Wise is a 68 year old female with Pmhx HTN, who presents to the ED with chief complaint of chest tightness. She reports having bradycardia while sleeping, this is recorded on her apple watch. 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 Recently she has experienced exhaustion and notice no hair on her legs anymore. initial vitals BP 143 / 74; Pulse 48; Resp 16 S; Temp 97.5(TE); Pulse Ox 98% on R/A EKG showing first degree heart block with bradycardia HR 46, prolonged QT 484. laboratory evaluation Trop 3.7, BNP 46, UA negative, all other labs unrem arkable. Chest xray reports "No acute cardiopulmonary disease'. Frida will be admitted to hospitalist service for further evaluation of chest pain r/o ACS, Dr. Babcock has been consulted. Allergies codeine Allergy (Unknown, Unverified 09/22/23 16:01) unknown meperidine [From Demerol] Allergy (Unknown, Unverified 09/22/23 16:01) unknown - Past Medical/Surgical History -: HTN -: IBS Past Surgical History: Reviewed- Non-Contributory - Social History Smoking Status: Never smoker Alcohol use: No CD- Drugs: No Review of Systems General: Weakness, Other (exhaustion ) Physical Examination - Physical Exam General: Alert, In no apparent distress, Oriented x3 HEENT: Atraumatic, Normocephalic, PERRLA Neck: Supple, 2+ carotid pulse no bruit, JVD not distended Respiratory: Clear to auscultation bilaterally, Normal air movement Cardiovascular: No edema, Normal pulses, Regular rate/rhythm, Normal S1 S2 Capillary refill: <2 Seconds Gastrointestinal: Normal bowel sounds, Soft and benign, Non-distended, No tenderness Musculoskeletal: No swelling Integumentary: No rashes Neurological: Normal speech, Normal strength at 5/5 x4 extr, Normal tone - Studies Laboratory Data (last 24 hrs) 09/22/23 09/22/23 09/22/23 11:13 11:13 11:13 WBC 3.60 L Hgb 13.2 Hct 38.8 Plt Count 249 PT 11.7 INR 1.07 Sodium 142 Potassium 4.2 BUN 15 Creatinine 0.78 Glucose 95 Magnesium 2.1 Total Bilirubin 0.4 AST 21 ALT 35 Alkaline Phosphatase 82 Lipase 72 Assessment and Plan - Plan Assessment and Plan Chest pain r/o ACS Prolonged QT Troponin 3.7, serial pending QT 484, avoid medications that prolong QT BNP 46 Chest xray reports "No acute cardiopulmonary disease" EKG showing first degree heart block with bradycardia HR 46, prolonged QT 484. asa, statin daily nitroglycerin, morphine PRN ECHO ordered Dr Blandon consulted NPO at midnight Stress test in the AM History of HTN restart home medications if appropriate initial BP 143/74 DVT ppx lovenox Full code LOS 2 days Discharge Plan: Home Plan to discharge in: 24 Hours - Advance Directives Does patient have a Living Will: No Does patient have a Durable POA for Healthcare: No Time Spent Managing Pts Care (In Minutes): 50
[2023-09-22] MEDS ORDERED: MORPHINE 2 MG/ML SYR IV PRN (15:21)
[2023-09-22] MEDS ORDERED: NITROGLYCERIN 0.4 MG/TAB SL PRN (15:21)
[2023-09-22] MEDS ORDERED: ACETAMINOPHEN 500 MG TAB PO PRN (15:21)
[2023-09-22] MEDS: ENOXAPARIN 40 MG/0.4 ML SQ SCH (16:00)
[2023-09-22] MEDS ORDERED: ENOXAPARIN 80 MG/0.8 ML SQ ONE (16:23)
[2023-09-22 16:30] VITALS: BMI 27.3
--- NOTE | 2023-09-22 17:08 | P.CNS ---
Date of Consult: 09/22/23 Chief Complaint: chest pain r/o History of Present Illness: patient with PMH of hypertension, family history of premature CAD, she has been feeling weak for last week and started having chest pressure sensation yesterday, middle of the chest, rated as 2 out of 10, no other associated symptoms. Allergies codeine Allergy (Unknown, Unverified 09/22/23 16:01) unknown meperidine [From Demerol] Allergy (Unknown, Unverified 09/22/23 16:01) unknown Review of Systems 10-point ROS is otherwise unremarkable Physical Examination Temp Pulse Resp BP Pulse Ox 76 18 139/76 99 09/22/23 16:00 09/22/23 16:00 09/22/23 16:00 09/22/23 16:00 General: Alert, Oriented x3 HEENT: Atraumatic Neck: Supple Respiratory: Clear to auscultation bilaterally Cardiovascular: No edema, Normal S1 S2 Gastrointestinal: Normal bowel sounds Laboratory Data (last 24 hrs) 09/22/23 09/22/23 09/22/23 11:13 11:13 11:13 WBC 3.60 L Hgb 13.2 Hct 38.8 Plt Count 249 PT 11.7 INR 1.07 Sodium 142 Potassium 4.2 BUN 15 Creatinine 0.78 Glucose 95 Magnesium 2.1 Total Bilirubin 0.4 AST 21 ALT 35 Alkaline Phosphatase 82 Lipase 72 - Problems (1) Chest pain Current Visit: Yes Status: Acute Plan: patient with multiple risks for CAD, including hypertension, HLD and family history of premature CAD. NPO past midnight for stress test in am also get echo please. (2) Hypertension Current Visit: Yes Status: Acute Plan: continue patient home medications, she says she is on losartan and norvasc (3) HLD (hyperlipidemia) Current Visit: Yes Status: Acute Plan: get lipid panel continue Liptitor 40 mg daily
[2023-09-22 18:28] LABS: Specific Gravity 1.012 (1.005-1.030); Urine Bilirubin NEGATIVE (Negative); Urine Blood Negative (Negative); Urine Clarity Clear (Clear); Urine Color Light-Yellow (Yellow); Urine Glucose NEGATIVE (Negative); Urine Ketones NEGATIVE (Negative); Urine Microscopic Reflex YN NO UMIC; Urine Nitrite NEGATIVE (Negative); Urine Protein NEGATIVE (Negative); Urine Urobilinogen Normal (Normal)
[2023-09-22 18:37] VITALS: O2SAT 99
[2023-09-22 19:07] LABS: Thyroid Stimulating Hormone 2.39 uIU/mL (0.358-3.740)
[2023-09-22] MEDS: ATORVASTATIN 40 MG TAB PO SCH (20:38)
[2023-09-22] MEDS ORDERED: HYDRALAZINE HCL 20 MG/ML VIAL IV PRN (21:45)
[2023-09-23 03:07] LABS: Absolute Eosinophils 0.1 K/uL (0-0.5); Absolute Lymphocytes (CBC) 2.3 K/uL (0.7-4.9); Absolute Monocytes 0.4 K/uL (0.1-1.3); Absolute Neutrophil 1.6 K/uL (1.8-8.0); Basophils % 0.7 % (0-1.3); Eosinophils % 2.6 % (0-4.4); Hematocrit 38.6 % (36.0-45.0); Hemoglobin 13.1 g/dL (12.0-15.0); Lymphocytes % 51.7 % (15.3-44.8); MCH 30.6 pg (27.0-35.0); MPV 7.6 fL (7.6-11.3); Monocytes % 9.5 % (3.3-12.3); Neutrophils % 35.5 % (41.7-73.7); Nucleated Red Blood Cells % 0.1 % (0-0); Platelets 238 thou/uL (152-406); RBC Red Blood Cell Count 4.29 M/uL (3.86-4.86); Red Cell Distribution Width 14.7 % (12.1-15.2)
[2023-09-23 03:24] LABS: Anion Gap 8.4 mEq/L (5.0-15.0); Phosphorus 4.6 mg/dL (2.5-4.9); Potassium 3.4 mEq/L (3.5-5.1); Troponin High Sensitivity 4.4 pg/mL (<58.9)
[2023-09-23] MEDS: ASPIRIN EC 81 MG TAB PO SCH (07:53)
--- NOTE | 2023-09-23 08:23 | P.PN ---
Date of Service: 09/23/23 Subjective ROS 10 point ROS as noted above, otherwise negative Physical Exam General: Alert, In no apparent distress, Oriented x3 HEENT: Atraumatic, Normocephalic, PERRLA Neck: Supple, 2+ carotid pulse no bruit, JVD not distended Respiratory: Clear to auscultation bilaterally, Normal air movement Cardiovascular: No edema, Normal pulses, Regular rate/rhythm, Normal S1 S2 Capillary refill: <2 Seconds Gastrointestinal: Normal bowel sounds, Soft and benign, Non-distended, No tenderness Musculoskeletal: No swelling Integumentary: No rashes Neurological: Normal speech, Normal strength at 5/5 x4 extr, Normal tone Vitals Reviewed Problem list Chest pain r/o ACS Prolonged QT History of HTN Assessment and Plan Chest pain r/o ACS Prolonged QT Troponin 3.7, 6.6, 4.4 QT 484, avoid medications that prolong QT BNP 46 Chest xray reports "No acute cardiopulmonary disease" EKG showing first degree heart block with bradycardia HR 46, prolonged QT 484. asa, statin daily nitroglycerin, morphine PRN ECHO ordered Dr Blandon consulted NPO at midnight Stress test in the AM Triglyceride 84, cholesterol 133, LDL 47, HDL 69, cholesterol/HDL ratio 1.93 TSH 2.390/free T4 0.93 History of HTN restart home medications if appropriate initial BP 143/74 DVT ppx lovenox Full code LOS 2 days
[2023-09-23] MEDS ORDERED: REGADENOSON 0.4 MG/5 ML SYR IV ONE (09:40)
--- NOTE | 2023-09-23 10:56 | RAD REPORT ---
EXAM DESCRIPTION: NM - Rest Stress Cardiac Imaging - 09/23/2023 10:31 am CLINICAL HISTORY: Chest pain. COMPARISON: None. TECHNIQUE: The patient was administered 10.7 mCi of Tc 99m Sestamibi prior to resting SPECT imaging of the heart. The patient was then administered 28.8 mCi of Tc 99m Sestamibi following exercise or ph armacologic stress. Multiplanar SPECT images were reviewed. FINDINGS: Small to moderate area of diminished radiotracer activity involves the anteroapical left v entricular myocardium on rest and stress sequences. Remainder of the exam unremarkable The left ventricular ejection fraction equals 67% IMPRESSION: Small to moderate apparent fixed perfusion defect anteroapical left ventricular myocardi um could represent an infarct or be attenuation from overlying soft tissue There is no evidence of stress-induced ischemia
[2023-09-23 12:28] VITALS: BP 155/71; TEMP 97.3
--- NOTE | 2023-09-23 13:26 | TREADPHA ---
DX: CHEST PAIN, RULE OUT ACUTE CORONARY SYNDROME Date of Study: 09/23/2023 Ht: 5' 3 " Wt: 153 lb 0 oz Consulting Physician: PALOMA MEDICATIONS: TYLENOL, ASPIRIN, LIPITOR, LOVENOX, APRESOLINE, MORPHINE, NITROSTAT, KLOR-CON HISTORY: 68 YEAR OLD FEMALE WITH COMPLAINTS OF CHEST PRESSURE. HISTORY OF HYPERTENSION, SLEEP APNEA, IRRITABLE BOWEL SYNDROMW, BACK PROBLEMS. PATIENT STATES ALLERGY TO CODEINE, DEMEROL. PATIENT STATES CHEST PRESSURE A TWO OUT OF TEN ON PAIN SCALE WITH NO RELIEF. PHYSICIAL EXAMINATION: RESTING B.P.: 139/74 RESTING H.R.: 42 RESTING EKG: SINUS BRADYCARDIA PROTOCOL: PHARMACOLOGIC EXERCISE TIME: 3:30 B.P. AT [place] STRESS: 118/68 IMPRESSION: LEXISCAN INJECTED. CARDIOLITE INJECTED - SEE NUCLEAR MEDICINE REPORT. PATIENT DENIES CHEST PAIN. NO SUPRAVENTRICULAR TACHYCARDIA, VENTRICULAR TACHYCARDIA, PREMATURE ATRIAL COMPLEXES, PREMATURE VENTRICULAR COMPLEXES NOTED.
--- NOTE | 2023-09-23 13:30 | P.DS ---
Admission Date: 09/22/23 Discharge Date: 09/23/23 Disposition: ROUTINE DISCHARGE Discharge Condition: GOOD Reason for Admission: chest pain r/o Brief History of Present Illness: Diagnosis Chest pain r/o ACS Prolonged QT History of HTN HPI 09/22/23 Frida Wise is a 68 year old female with Pmhx HTN, who presents to the ED with chief complaint of chest tightness. She reports having bradycardia while sleep ing, this is recorded on her apple watch. 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 Recently she has experienced exhaustion and notice no hair on her legs anymore. initial vitals BP 143 / 74; Pulse 48; Resp 16 S; Temp 97.5(TE); Pulse Ox 98% on R/A EKG showing first degree heart block with bradycardia HR 46, prolonged QT 484. laboratory evaluation Trop 3.7, BNP 46, UA negative, all other labs unremarkable. Chest xray reports "No acute cardiopulmonary disease'. Frida will be admitted to hospitalist service for further evaluation of chest pain r/o ACS, Dr. Babcock has been consulted. Hospital Course: Frida Wise is a pleasant 68 year old female with a past medical history significant for HTN who was admitted to the [facility] on 09/22/23 for Chest r/o ACS. Frida presented to the ED with chief complaint of cjest pain and pressure as well as exhaustion. She reported bradycardia during her sleep which is recorded on her apple watch. Dr. Blandon was consulted. Stress test resulted negative for ischemia. ECHO result is pending. She will plan to follow up with Dr. Blandon for results and continued cardiac management. On 09/23/23, Frida was seen on morning rounds and deemed medically stable for discharge. Frida was discharged with instructions to schedule follow-up appointments with PCP and Dr. Blandon. Frida was provided prescriptions for aspirin and lipitor. The patient was given the opportunity to ask questions and reported no further questions. Furthermore, all questions were answered to the best of my ability. A copy of this discharge summary will be sent to the above providers to facilitate continuity of care. Today, I personally spent 50 minutes with Frida, of which greater than 50% of the time was spent in patient education, counseling, and coordination of care as described above. Physical Exam General: AAOx3, NAD, calm HEENT: Atraumatic, Normocephalic, PERRLA Neck: Supple, 2+ carotid pulse no bruit, JVD not distended Respiratory: Clear to auscultation bilaterally, Normal air movement Cardiovascular: No edema, RRR, Normal S1 S2 present Capillary refill: <2 Seconds Gastrointestinal: Normoactive bowel sounds, Soft and benign on palpation, NT/ND Musculoskeletal: No swelling Integumentary: No rashes Neurological: Normal speech, Normal strength at 5/5 x4 extr, Normal tone Vital Signs/Physical Exam: Temp Pulse Resp BP Pulse Ox 97.3 F 42 L 15 155/71 H 94 09/23/23 12:11 09/23/23 12:11 09/23/23 12:11 09/23/23 12:11 09/23/23 12:11 Laboratory Data at Discharge: WBC 4.50 thou/uL (4.3-10.9) 09/23/23 02:53 Hgb 13.1 g/dL (12.0-15.0) 09/23/23 02:53 Hct 38.6 % (36.0-45.0) 09/23/23 02:53 Plt Count 238 thou/uL (152-406) 09/23/23 02:53 PT 11.7 SECONDS (9.5-12.5) 09/22/23 11:13 INR 1.07 09/22/23 11:13 Sodium 141 mEq/L (136-145) 09/23/23 02:53 Potassium 3.4 mEq/L (3.5-5.1) L D 09/23/23 02:53 BUN 16 mg/dL (7-18) 09/23/23 02:53 Creatinine 0.86 mg/dL (0.55-1.02) 09/23/23 02:53 Glucose 114 mg/dL (74-106) H 09/23/23 02:53 Phosphorus 4.6 mg/dL (2.5-4.9) 09/23/23 02:53 Magnesium 2.0 mg/dL (1.6-2.4) 09/23/23 02:53 Total Bilirubin 0.4 mg/dL (0.2-1.0) 09/22/23 11:13 AST 21 U/L (15-37) 09/22/23 11:13 ALT 35 U/L (13-56) 09/22/23 11:13 Alkaline Phosphatase 82 U/L (45-117) 09/22/23 11:13 Triglycerides 84 mg/dL (<150) 09/23/23 02:53 Cholesterol 133 mg/dL (<200) 09/23/23 02:53 HDL Cholesterol 69 mg/dL (40-60) H 09/23/23 02:53 Cholesterol/HDL Ratio 1.93 09/23/23 02:53 Lipase 72 U/L (13-75) 09/22/23 11:13 Home Medications: Aspirin [Aspirin EC 81 MG] 81 mg PO DAILY #30 tab 09/23/23 Atorvastatin Calcium [Lipitor] 40 mg PO BEDTIME #30 tab 09/23/23 New Medications: Aspirin [Aspirin EC 81 MG] 81 mg PO DAILY #30 tab Atorvastatin Calcium [Lipitor] 40 mg PO BEDTIME #30 tab Physician Discharge Instructions: -DC IV and DC home -Follow-up with PCP in 1 to 2 weeks -Follow-up with Cardiology in 1 to 2 weeks -Please call Dr. Rodriguez at [phone] if any questions regarding hospital stay -Please call nursing station at [phone] if any nursing or medication questions -Return to the emergency room if symptoms worsen Diet: AHA Activity: Fall precautions Followup: OOT,OOT [Primary Care Provider] - Gustavo Babcock MD [ACTIVE - CAN ADMIT] - Time spent managing pt's care (in minutes): 50
[2023-09-23] MEDS ORDERED: POTASSIUM CL SA 10 MEQ TAB PO ONE (14:00)
--- NOTE | 2023-09-23 14:09 | ECHO ---
HEIGHT: 5 ft 3 in WEIGHT: 153 lb 0 oz DATE OF STUDY: 09/23/[address]: Fadia Pena NP 2-DIMENSIONAL: YES M.MODE: YES DOPPLER: YES COLOR FLOW: YES TDS: PORTABLE: YES DEFINITY: BUBBLE STUDY: DIAGNOSIS: CHEST PAIN, BRADYCARDIA CARDIAC HISTORY: CATHERIZATION: SURGERY: PROSTHETIC VALVE: PACEMAKER: MEASUREMENTS (cm) DIASTOLIC (NORMALS) SYSTOLIC (NORMALS) IVSd 0.7 (0.6-1.2) LA Diam 4.2 (1.9-4.0) LVEF 70% LVIDd 4.6 (3.5-5.7) LVIDs 2.8 (2.0-3.5) %FS 40% LVPWd 0.9 (0.6-1.2) Ao Diam 2.5 (2.0-3.7) 2 DIMENSIONAL ASSESSMENT: RIGHT ATRIUM: NORMAL LEFT ATRIUM: NORMAL RIGHT VENTRICLE: NORMAL LEFT VENTRICLE: NORMAL TRICUSPID VALVE: NORMAL MITRAL VALVE: TRACE MITRAL REGURGITATION PULMONIC VALVE: NORMAL AORTIC VALVE: TRACE AORTIC REGURGITATION PERICARDIAL EFFUSION: NONE AORTIC ROOT: NORMAL LEFT VENTRICULAR WALL MOTION: NORMAL DOPPLER/COLOR FLOW: NORMAL COMMENTS: 1. NORMAL LEFT VENTRICULAR SYSTOLIC AND DIASTOLIC FUNCTION 2. NORMAL WALL MOTION TECHNOLOGIST: HSAHEEN FAJARDO. RUST
--- NOTE | 2023-09-23 14:28 | P.PN ---
Subjective Date of Service: 09/23/23 Chief Complaint: chest pain r/o Subjective: No new changes Review of Systems 10-point ROS is otherwise unremarkable Physical Examination - Vital Signs Temperature: 97.3 F Blood Pressure: 155/71 Pulse: 42 Respirations: 15 Pulse Ox (%): 94 - Physical Exam General: Alert, Oriented x3 HEENT: Atraumatic Neck: Supple Respiratory: Clear to auscultation bilaterally Cardiovascular: No edema, Normal S1 S2 Gastrointestinal: Normal bowel sounds Assessment And Plan - Current Problems (Diagnosis) (1) Chest pain Current Visit: Yes Status: Acute Plan: cardiac enzymes are negative, stress test is normal echo is normal follow up as outpatient with cardiology. (2) Hypertension Current Visit: Yes Status: Acute Plan: continue patient home medications, she says she is on losartan and norvasc (3) HLD (hyperlipidemia) Current Visit: Yes Status: Acute Plan: get lipid panel continue Liptitor 40 mg daily
--- NOTE | 2023-09-26 14:32 | EKG ---
Test Date: 2023-09-22 Test Time: 10:14:28 [employer] Project Coordination Specialist: REJI MEASUREMENT RESULTS: Intervals: Rate: 46 MS: 218 QRSD: 90 QT: 484 QTc: 423 [place]: P: 62 MS: 218 QRS: 66 T: 67 INTERPRETIVE STATEMENTS: Marked sinus bradycardia with 1st degree AV block Abnormal ECG No previous ECG available for comparison Electronically Signed On 09-26-23 14:18:17 CDT by Gustavo Babcock
== END 2023-09-23 15:30 | disposition home or self-care (01) ==
LOC: ER 10:53 → ERHOLD 15:21 → 4TH 17:28
PROVIDERS: ADMIT Internal Medicine; ATTEND Hospitalist
DX: R07.9 Chest pain, unspecified (principal); R94.31 Abnormal electrocardiogram [ECG] [EKG]; R00.1 Bradycardia, unspecified; R53.83 Other fatigue; R53.81 Other malaise; R53.1 Weakness; I10 Essential (primary) hypertension; I25.10 Atherosclerotic heart disease of native coronary artery without angina pectoris; E78.5 Hyperlipidemia, unspecified; Z88.5 Allergy status to narcotic agent
CPT/HCPCS: 93005; 93017; 93306; 85025 ×2; 80048 ×2; 36415 ×2; 83735 ×2; 84100; 85610; 80061; 80076; 84443; 81003; 84484 ×3; 84439; 83690; 83880; 71045; 78452; 96375; 96372; 96374; 99285; J2785; J2270; J2405; J7030; A9500; G0378 ×4; J1650